=== PATIENT | female | born 1960 ===

== ENCOUNTER 2017-05-13 08:22 | Outpatient (CLI) | payer BC ==
--- NOTE | 2017-05-13 10:01 | Fluoroscopy Report ---
MODIFIED BARIUM SWALLOW History: dysphagia. Findings: Video radiography was provided by the radiologist for speech therapy to assess the swallowing mechanism. 1 fluoroscopic image was captured. Impression: Successful modified barium swallow.
== END 2017-05-13 08:23 | disposition home or self-care (01) ==
LOC: PT 08:22
PROVIDERS: ATTEND Internal Medicine Gastroenterology
DX: R13.10 Dysphagia, unspecified (principal)
CPT/HCPCS: 74230